=== PATIENT | male | born 1980 | race Two or more races ===

== ENCOUNTER 2019-03-28 16:54 | Inpatient (IN) | payer OTHER, MEDICAID ==
[~2019-03-28] VITALS: Ht 172.7 cm; Wt 95.7 kg
[2019-03-28] MEDS ORDERED: SODIUM CHLORIDE 0.9% 1,000 ML IV ONE (18:08)
[2019-03-28] MEDS ORDERED: LORAZEPAM 2MG/ML CPJ IV ONE (18:15)
[2019-03-28 18:27] LABS: EOSINOPHILS % 2.8 % (0.0-5.0); HEMATOCRIT. 42.3 % (42.0-52.0); HEMOGLOBIN. 14.6 g/dL (14.0-18.0); LYMPHOCYTES % 33.1 % (20.0-50.0); MEAN CORPUSCULAR HEMOGLOBIN 30.2 pg (28.0-32.0); MEAN CORPUSCULAR VOLUME 87.6 fL (80.0-94.0); MEAN PLATELET VOLUME 7.8 fl (7.4-10.4); MONOCYTES % 9.7 % (2.0-8.0); NEUTROPHILS % 52.4 % (40.0-76.0); PLATELET 148 x1000/uL (130-400); RED BLOOD CELL COUNT 4.83 mill/uL (4.7-6.1)
[2019-03-28 18:32] LABS: CHLORIDE 107 mEq/L (98-107)
[2019-03-28 18:35] LABS: ETHANOL BLOOD 245 mg/dL
[2019-03-28 18:40] LABS: CLARITY URINE CLEAR (CLEAR); COLOR URINE YELLOW (YELLOW); KETONES URINE 1+ (NEGATIVE); LEUKOCYTE ESTERASE URINE NEGATIVE (NEGATIVE); NITRITE URINE NEGATIVE (NEGATIVE); OCCULT BLOOD URINE NEGATIVE (NEGATIVE); PROTEIN URINE 2+ (NEGATIVE); SPECIFIC GRAVITY URINE 1.022 (1.005-1.030)
[2019-03-28 18:53] LABS: *BENZODIAZEPINES SCREEN URINE NEGATIVE (NEGATIVE); *COCAINE SCREEN URINE NEGATIVE (NEGATIVE); METHADONE URINE SCREEN NEGATIVE (NEGATIVE); OPIATES URINE SCREEN NEGATIVE (NEGATIVE)
[2019-03-28 18:54] LABS: *AMPHETAMINES SCREEN URINE NEGATIVE (NEGATIVE); *BARBITURATES SCREEN URINE NEGATIVE (NEGATIVE); CANNABINOID URINE SCREEN NEGATIVE (NEGATIVE); PHENCYCLIDINE URINE SCREEN NEGATIVE (NEGATIVE)
[2019-03-28] MEDS ORDERED: KETOROLAC 15MG/ML VIAL IV ONE ×2 (19:45→23:45)
[2019-03-28] MEDS ORDERED: LORAZEPAM 1MG TABLET PO ONE (23:45)
[2019-03-29] VITALS (42 sets, daily range): BP systolic 141–197; BP diastolic 85–113
[2019-03-29] MEDS: DEXT 5%/0.9% NACL 1,000 ML IV SCH ×2 (01:00→05:53)
[2019-03-29] MEDS ORDERED: LORAZEPAM 2MG/ML CPJ IV ONE (02:30)
[2019-03-29] MEDS ORDERED: CHLORDIAZEPOXIDE 25MG CAPSULE PO ONE (02:30)
[2019-03-29] MEDS ORDERED: LORAZEPAM 2MG/ML CPJ IV PRN (05:45)
[2019-03-29] MEDS ORDERED: MORPHINE SULFATE 2 MG/ML CPJ (NOT FOR IM USE) IV STA (06:04)
[2019-03-29] MEDS ORDERED: ONDANSETRON HCL 4MG/2ML INJ IV PRN ×3 (06:07→07:45)
[2019-03-29] MEDS ORDERED: ACETAMINOPHEN 325MG TABLET PO PRN (07:30)
[2019-03-29] MEDS ORDERED: ACETAMINOPHEN 650MG/20.3ML UDC GT PRN (07:30)
[2019-03-29] MEDS ORDERED: ACETAMINOPHEN 650MG SUPP PR PRN (07:30)
[2019-03-29] MEDS ORDERED: GUAIFENESIN 200MG/10ML SUGAR FREE UDC PO PRN (07:30)
[2019-03-29] MEDS ORDERED: NA PHOS,M-B/NA PHOS,DI-BA ENEMA 118ML PR PRN (07:30)
[2019-03-29] MEDS ORDERED: DIPHENHYDRAMINE 50MG/ML VIAL IV PRN (07:30)
[2019-03-29] MEDS ORDERED: IPRATROPIUM/ALBUTEROL 0.5-3(2.5)MG/3ML NEB INH PRN (07:30)
[2019-03-29] MEDS ORDERED: DOCUSATE SODIUM 100MG CAPSULE PO PRN (07:30)
[2019-03-29] MEDS ORDERED: MAGNESIUM/ALUMINUM HYDROXIDE/SIMETHICONE 30ML UDC PO PRN (07:30)
[2019-03-29] MEDS ORDERED: ONDANSETRON HCL 4MG/2ML INJ IV NR (07:45)
[2019-03-29] MEDS ORDERED: HYDRALAZINE 20MG/ML VIAL IV PRN (07:45)
[2019-03-29] MEDS: THIAMINE HCL 100MG TABLET PO SCH ×2 (08:40→09:00)
[2019-03-29] MEDS: CLONIDINE 0.1MG TABLET PO PRN ×2 (08:44→15:23)
[2019-03-29] MEDS ORDERED: FOLIC ACID 1 MG, THIAMINE HCL 100 MG, MVI, ADULT NO.1 10 ML in DEXTROSE 5% WATER 1,000 ML IV ONE ×4 (09:00)
[2019-03-29] MEDS: FAMOTIDINE 20MG/2ML VIAL IV SCH ×2 (09:45→21:28)
[2019-03-29] MEDS: ENOXAPARIN 30MG/0.3ML SYR SUBCUT SCH ×2 (09:46→21:27)
[2019-03-29] MEDS: FOLIC ACID 1MG TABLET PO SCH (09:47)
[2019-03-29] MEDS ORDERED: AMLODIPINE 5MG TABLET PO SCH (10:00)
[2019-03-29] MEDS: CHLORDIAZEPOXIDE 25MG CAPSULE PO SCH ×3 (11:57→21:27)
[2019-03-29] MEDS: SODIUM CHLORIDE 0.9% INJ 3ML FLUSH IVF SCH (14:09)
[2019-03-29 18:38] LABS: CREATINE KINASE 130 IU/L (39-308)
[2019-03-29 18:39] LABS: CREATINE KINASE MB FRACTION < 1.0 ng/mL (0.5-3.6)
[2019-03-29] MEDS: AMLODIPINE 5MG TABLET PO SCH (21:28)
[2019-03-30] VITALS (16 sets, daily range): BP systolic 126–155; BP diastolic 78–105
[2019-03-30] MEDS: DEXT 5%/0.9% NACL 1,000 ML IV SCH (01:00)
[2019-03-30 05:08] LABS: CHLORIDE 99 mEq/L (98-107)
[2019-03-30 05:09] LABS: BASOPHILS % 0.9 % (0.0-2.0); EOSINOPHILS % 4.4 % (0.0-5.0); HEMATOCRIT. 44.6 % (42.0-52.0); HEMOGLOBIN. 15.4 g/dL (14.0-18.0); LYMPHOCYTES % 23.4 % (20.0-50.0); MEAN CORPUSCULAR HEMOGLOBIN 30.2 pg (28.0-32.0); MEAN CORPUSCULAR VOLUME 87.2 fL (80.0-94.0); MEAN PLATELET VOLUME 8.3 fl (7.4-10.4); MONOCYTES % 7.2 % (2.0-8.0); NEUTROPHILS % 64.1 % (40.0-76.0); PLATELET 107 x1000/uL (130-400); RED BLOOD CELL COUNT 5.11 mill/uL (4.7-6.1); RED CELL DISTRIBUTION WIDTH 14.9 % (11.6-14.6)
[2019-03-30 05:15] LABS: LDL CHOLESTEROL 125 mg/dL (5-100)
[2019-03-30 05:16] LABS: HDL CHOLESTEROL 81 mg/dL (40-59)
[2019-03-30 05:17] LABS: CREATINE KINASE 121 IU/L (39-308)
[2019-03-30 05:19] LABS: CREATINE KINASE MB FRACTION < 1.0 ng/mL (0.5-3.6)
[2019-03-30] MEDS: SODIUM CHLORIDE 0.9% INJ 3ML FLUSH IVF SCH ×2 (05:33→14:19)
[2019-03-30] MEDS: CHLORDIAZEPOXIDE 25MG CAPSULE PO SCH ×3 (05:49→21:02)
[2019-03-30] MEDS ORDERED: POTASSIUM CHLORIDE 20MEQ TABLET SR PO NR ×2 (08:00→11:15)
[2019-03-30] MEDS: ENOXAPARIN 30MG/0.3ML SYR SUBCUT SCH ×2 (08:26→20:51)
[2019-03-30] MEDS: FAMOTIDINE 20MG/2ML VIAL IV SCH ×2 (08:26→21:00)
[2019-03-30] MEDS: FOLIC ACID 1MG TABLET PO SCH (08:27)
[2019-03-30] MEDS: THIAMINE HCL 100MG TABLET PO SCH (08:27)
[2019-03-30] MEDS: AMLODIPINE 5MG TABLET PO SCH ×2 (08:27→20:52)
[2019-03-30] MEDS ORDERED: POTASSIUM CHLORIDE 20MEQ TABLET SR PO SCH (11:00)
[2019-03-30] MEDS ORDERED: POTASSIUM CHLORIDE 20MEQ TABLET SR PO PRN (11:00)
[2019-03-31] VITALS: BP 130/87
== END 2019-03-31 04:45 | disposition left against medical advice (07) | DRG 203 ==
LOC: ER 16:54 → MICUSO 03-29 02:27 → ENRESERV 03-29 05:33 → MICUSO 03-30 04:00 → 6EST 03-30 13:11
PROVIDERS: ADMIT Family Medicine; ATTEND Family Medicine
DX: R07.89 Other chest pain (principal); F10.231 Alcohol dependence with withdrawal delirium; E87.2 Acidosis; K70.10 Alcoholic hepatitis without ascites; E87.6 Hypokalemia; E86.0 Dehydration; I10 Essential (primary) hypertension; F32.9 Major depressive disorder, single episode, unspecified; Y90.8 Blood alcohol level of 240 mg/100 ml or more; Z53.21 Procedure and treatment not carried out due to patient leaving prior to being seen by health care provider
CPT/HCPCS: 36415; 71045; 74018; 80061; 80305; 80320; 82550; 82553; 83605; 83735; 84132; 84484; 93005; 93306; 96361; 96374; 96375; 96376; 99285; J1650; J1885; J2060; J2270; J2405; J3411; J3490; J7030; J7042; J7070; G0480